=== PATIENT | female | born 1965 | race Caucasian/White ===

== ENCOUNTER 2018-12-04 09:11 | Day surgery (SDC) | payer OTHER ==
[2018-12-04] MEDS ORDERED: PROPOFOL 20 ML (10:24)
[2018-12-04] MEDS ORDERED: FENTAnyl 50 MCG/ML VIAL (10:24)
[2018-12-04] MEDS ORDERED: ONDANSETRON 4 MG INJ IV (10:30)
== END 2018-12-04 16:11 | disposition home or self-care (01) ==
LOC: GIL 09:11
DX: Z12.11 Encounter for screening for malignant neoplasm of colon (principal); K64.8 Other hemorrhoids; K44.9 Diaphragmatic hernia without obstruction or gangrene; K29.30 Chronic superficial gastritis without bleeding; Q27.33 Arteriovenous malformation of digestive system vessel
CPT/HCPCS: 43239; 88305; 88312